=== PATIENT | female | born 1990 | race Caucasian/White ===

== ENCOUNTER 2018-12-31 18:50 | Emergency (ER) | payer BC ==
[2018-12-31] MEDS ORDERED: LORazepam 2 MG/ML SDV IVPUSH ONE (18:54)
--- NOTE | 2018-12-31 18:58 | EDM.PDOC ---
ED HPI GENERAL MEDICAL PROBLEM - General Chief Complaint: Chest Pain Stated Complaint: CHEST PAIN SOB Time Seen by Provider: 12/31/18 18:51 Source of Information: Reports: Patient History Limitations: Reports: No Limitations - History of Present Illness INITIAL COMMENTS - FREE TEXT/NARRATIVE: HISTORY AND PHYSICAL: History of present illness: Patient is a 28-year-old female presents to the ED today with concern of an episode of chest pain and shortness of breath that lasted approximately 5 minutes just prior to arrival to the ED. Patient states she was just sitting in the car when the symptoms occurred. Patient states she did not take anything for her symptoms and came to the ED right away. Patient states she has a history of PCOS in when she is on insulin for but denies any other health history. Patient states she's had a history of hysterectomy in or short of breath. Patient states she does feel mildly anxious and is moving to [place] tomorrow also has been under more stress. Patient denies fever, chills, or cough. Denies headache, neck stiff ness, change in vision, syncope, or near syncope. Denies nausea, vomiting, abdominal pain, diarrhea, constipation, or dysuria. Has not noted any blood in urine or stool. Patient has been eating and drinking appropriately. Review of systems: As per history of present illness and below otherwise all systems reviewed and negative. Past medical history: As per history of present illness and as reviewed below otherwise noncontributory. Surgical history: As per history of present illness and as reviewed below otherwise noncontributory. Social history: See social history for further information Family history: As per history of present illness and as reviewed below otherwise noncontributory. Physical exam: General: Patient is alert, oriented, and in no acute distress. Patient sitting comfortably on exam table and mildly anxious appearing. HEENT: Atraumatic, normocephalic, pupils equal and reactive bilaterally, negative for conjunctival pallor or scleral icterus, mucous membranes moist, TMs normal bilaterally, throat clear, neck supple, nontender, trachea midline. No drooling or trismus noted. No meningeal signs. No hot potato voice noted. Lungs: Clear to auscultation, breath sounds equal bilaterally, chest nontender. Heart: S1S2, regular rate and rhythm without overt murmur Abdomen: Soft, nondistended, nontender. Negative for masses or hepatosplenomegaly. Negative for costovertebral tenderness. Pelvis: Stable nontender. Genitourinary: Deferred. Rectal: Deferred. Skin: Intact, warm, dry. No lesions or rashes noted. Extremities: Atraumatic, negative for cords or calf pain. Neurovascular unremarkable. Neuro: Awake, alert, oriented. Cranial nerves II through XII unremarkable. Cerebellum unremarkable. Motor and sensory unremarkable throughout. Exam nonfocal. Notes: Discussed the importance for follow-up with the primary care provider. Voices understanding and is agreeable to plan of care. Denies any further questions or concerns at this time. Diagnostics: EKG, CBC, CMP, UA, chest x-ray, troponin Therapeutics: Ativan Prescription: None Impression: Chest pain, resolved Plan: 1. You can alternate ibuprofen and Tylenol as directed for pain and discomfort. 2. Follow-up with your primary care provider as discussed. Return to the ED as needed and as discussed. Definitive disposition and diagnosis as appropriate pending reevaluation and review of above. Left Chest Pain Score (Numeric/FACES): 10 - Related Data Allergies Allergy/AdvReac Type Severity Reaction Status Date / Time No Known Allergies Allergy Verified 12/31/18 19:17 Home Meds: Home Meds metFORMIN [Glucophage XR] 500 mg PO BID 02/13/15 [History] Acetaminophen/oxyCODONE [Percocet 325-5 MG] 1 tab PO Q4H PRN #30 tablet [Rx] Past Medical History Respiratory History: Reports: Other (See Below) Other Respiratory History: Pneumonia Genitourinary History: Reports: Other (See Below) Other Genitourinary History: Laparoscopic, Oophorectomy,Left Other PHARMACY LABORATORY TECHNICIAN History: Dysmenorrhea Other Musculoskeletal History: hx: fracturing Clavicle - Past Surgical History GI Surgical History: Reports: Appendectomy Other Female Surgeries/Procedures: Ovarian cystectomy, Left salpingo- oophorectomy with first child, Laparoscopy 01/2011 Social & Family History - Family History Cardiac: Reports: Hypertension Endocrine/Metabolic: Reports: Diabetes, type II ED ROS GENERAL - Review of Systems Review Of Systems: ROS reveals no pertinent complaints other than HPI. ED EXAM, GENERAL - Physical Exam Exam: See Below (see dictation) Course - Vital Signs Last Recorded V/S: Last Vital Signs Temp 96.6 F 12/31/18 19:18 Pulse 85 12/31/18 19:18 Resp 18 12/31/18 19:18 BP 122/74 12/31/18 19:18 Pulse Ox 10 L 12/31/18 19:18 - Orders/Labs/Meds Orders: Active Orders 24 hr Category Date Time Status EKG Documentation Completion [RC] STAT Care 12/31/18 18:54 Active UA RFX NELDA AND CULT IF INDIC [URIN] Stat Lab 12/31/18 18:54 Ordered Labs: Laboratory Tests 12/31/18 12/31/18 Range/Units 18:55 18:55 WBC 9.31 (4.0-11.0) K/uL RBC 4.09 L (4.30-5.90) M/uL Hgb 12.5 (12.0-16.0) g/dL Hct 36.4 (36.0-46.0) % MCV 89.0 (80.0-98.0) fL MCH 30.6 (27.0-32.0) pg MCHC 34.3 (31.0-37.0) g/dL RDW Std Deviation 39.1 (28.0-62.0) fl RDW Coeff of Josefa 12 (11.0-15.0) % Plt Count 323 (150-400) K/uL MPV 9.50 (7.40-12.00) fL Neut % (Auto) 52.0 (48.0-80.0) % Lymph % (Auto) 38.5 (16.0-40.0) % [place] % (Auto) 8.1 (0.0-15.0) % Eos % (Auto) 1.2 (0.0-7.0) % Baso % (Auto) 0.2 (0.0-1.5) % Neut # (Auto) 4.9 (1.4-5.7) K/uL Lymph # (Auto) 3.6 H (0.6-2.4) K/uL [place] # (Auto) 0.8 (0.0-0.8) K/uL Eos # (Auto) 0.1 (0.0-0.7) K/uL Baso # (Auto) 0.0 (0.0-0.1) K/uL Nucleated RBC % 0.0 /100WBC Nucleated RBCs # 0 K/uL Sodium 141 (136-145) mmol/L Potassium 3.2 L (3.5-5.1) mmol/L Chloride 105 (98-107) mmol/L Carbon Dioxide 24.3 (21.0-32.0) mmol/L BUN 10 (7.0-18.0) mg/dL Creatinine 1.0 (0.6-1.0) mg/dL Est Cr Clr Drug Dosing 74.69 mL/min Estimated GFR (MDRD) > 60.0 ml/min Glucose 98 (74-106) mg/dL Calcium 8.9 (8.5-10.1) mg/dL Total Bilirubin 0.3 (0.2-1.0) mg/dL AST 17 (15-37) IU/L ALT 26 (14-63) IU/L Alkaline Phosphatase 77 (46-116) U/L Troponin I < 0.050 (0.000-0.056) ng/mL Total Protein 7.5 (6.4-8.2) g/dL Albumin 4.0 (3.4-5.0) g/dL Globulin 3.5 (2.6-4.0) g/dL Albumin/Globulin Ratio 1.1 (0.9-1.6) Meds: Medications Discontinued Medications Generic Name Dose Route Start Last Admin Trade Name Deepakq PRN Reason Stop Dose Admin Lorazepam 0.5 mg 12/31/18 18:54 12/31/18 19:06 Ativan IVPUSH 12/31/18 18:55 0.5 mg ONETIME ONE Administration Departure - Departure Time of Disposition: 19:42 Disposition: Home, Self-Care 01 Clinical Impression: Chest pain Qualifiers: Chest pain type: unspecified Qualified Code(s): R07.9 - Chest pain, unspecified - Discharge Information Referrals: PCP,Unknown [Primary Care Provider] - Forms: ED Department Discharge Additional Instructions: The following information is given to patients seen in the emergency department who are being discharged to home. This information is to outline your options for follow-up care. We provide all patients seen in our emergency department with a follow-up referral. The need for follow-up, as well as the timing and circumstances, are variable depending upon the specifics of your emergency department visit. If you don't have a primary care physician on staff, we will provide you with a referral. We always advise you to contact your personal physician following an emergency department visit to inform them of the circumstance of the visit and for follow-up with them and/or the need for any referrals to a consulting specialist. The emergency department will also refer you to a specialist when appropriate. This referral assures that you have the opportunity for follow-up care with a specialist. All of these measure are taken in an effort to provide you with optimal care, which includes your follow-up. Under all circumstances we always encourage you to contact your private physician who remains a resource for coordinating your care. When calling for follow-up care, please make the office aware that this follow-up is from your recent emergency room visit. If for any reason you are refused follow-up, please contact the [facility] Emergency Department at and asked to speak to the emergency department charge nurse. [facility] [address] [place] [id number] [facility] [address] [place] [address] 1. You can alternate ibuprofen and Tylenol as directed for pain and discomfort. 2. Follow-up with your primary care provider as discussed. Return to the ED as needed and as discussed. - My Orders Last 24 Hours: My Active Orders 12/31/18 18:54 EKG Documentation Completion [RC] STAT UA RFX NELDA AND CULT IF INDIC [URIN] Stat - Assessment/Plan Last 24 Hours: My Active Orders 12/31/18 18:54 EKG Documentation Completion [RC] STAT UA RFX NELDA AND CULT IF INDIC [URIN] Stat
[2018-12-31 19:28] LABS: BLOOD UREA NITROGEN,BUN 10 mg/dL (7.0-18.0); CARBON DIOXIDE,CO2 24.3 mmol/L (21.0-32.0); CHLORIDE,CL 105 mmol/L (98-107); GLUCOSE RANDOM 98 mg/dL (74-106); POTASSIUM,K 3.2 mmol/L (3.5-5.1); SODIUM,NA 141 mmol/L (136-145)
--- NOTE | 2018-12-31 19:38 | CR ---
Indication: Chest pain. Shortness of breath. Technique: Single AP portable view of the chest was obtained. Comparison: None Findings: The heart is normal in size. The lungs are clear. No infiltrate, pleural effusion, or pneumothorax is identified. Impression: No acute cardiopulmonary process. Dictated by Jaylyn Pinedo MD @ Dec 31 2018 7:35PM Signed by Dr. Jaylyn Pinedo @ Dec 31 2018 7:36PM
[2018-12-31 19:57] VITALS: BP 103/63; PULSE 84
== END 2018-12-31 19:55 | disposition home or self-care (01) ==
LOC: MW.ED 18:50
DX: R07.9 Chest pain, unspecified (principal); E28.2 Polycystic ovarian syndrome; Z79.4 Long term (current) use of insulin
CPT/HCPCS: 71045; 80053; 84484; 85025; 93005; 96374; 99285; J2060; 99283